=== PATIENT | female | born 1990 ===

== ENCOUNTER 2019-11-10 11:08 | Inpatient (IN) | payer MEDICAID ==
[~2019-11-10] VITALS: Ht 177.8 cm; Wt 101.6 kg
[2019-11-10 11:24] VITALS: Ht 177.8 cm; Wt 101.6 kg
[2019-11-10 11:56] LABS: BASOPHIL % 0.7 % (0-2); PLATELET COUNT 403 x10^3mcL (130-400); RED CELL DISTRIBUTION WIDTH 15.5 % (11.5-14.5)
[2019-11-10 11:58] LABS: CALCIUM 8.7 mg/dL (8.5-10.1); CARBON DIOXIDE 26.1 mmol/L (21-32); CHLORIDE SERUM 104 mmol/L (98-107); CREATININE SERUM 0.8 mg/dL (0.6-1.0); GFR1 > 60 mL/min; GLUCOSE SERUM 92 mg/dL (74-106); POTASSIUM SERUM 3.7 mmol/L (3.5-5.1); SODIUM SERUM 139 mmol/L (136-145)
[2019-11-10 12:11] LABS: ALBUMIN 3.7 g/dL (3.4-5.0); ALKALINE PHOSPHATASE 71 U/L (46-116); ALT/SGPT 22 U/L (14-59); AST/SGOT 19 U/L (15-37); BILIRUBIN TOTAL 0.2 mg/dL (0.20-1.00); MAGNESIUM 1.7 mg/dL (1.8-2.4); T4(THYROXINE) 8.7 ug/dL (4.7-13.3); TOTAL PROTEIN, SERUM 8.1 g/dL (6.4-8.2)
[2019-11-10 13:29] LABS: AMPHETAMINE QUAL UR NONE DETECTED (See below)
[2019-11-10 16:40] LABS: UA SPECIFIC GRAVITY >=1.030 (1.005-1.035); urine erythrocyte NEGATIVE (NEGATIVE)
[2019-11-10 16:41] LABS: microscopic required? YES
[2019-11-10 18:15] VITALS: BP 123/60
[2019-11-10 20:30] VITALS: BP 103/47
[2019-11-10 21:32] VITALS: BP 102/46
[2019-11-11] VITALS (7 sets, daily range): BP systolic 94–114; BP diastolic 47–71
[2019-11-11 07:31] LABS: CALCIUM 8.2 mg/dL (8.5-10.1); CARBON DIOXIDE 24.4 mmol/L (21-32); CHLORIDE SERUM 105 mmol/L (98-107); CREATININE SERUM 0.8 mg/dL (0.6-1.0); GFR1 > 60 mL/min; GLUCOSE SERUM 82 mg/dL (74-106); MAGNESIUM 1.7 mg/dL (1.8-2.4); PHOSPHOROUS 3.3 mg/dL (2.5-4.9); POTASSIUM SERUM 3.7 mmol/L (3.5-5.1); SODIUM SERUM 140 mmol/L (136-145)
[2019-11-11 08:48] LABS: BASOPHIL % 0.8 % (0-2); PLATELET COUNT 351 x10^3mcL (130-400); RED CELL DISTRIBUTION WIDTH 15.8 % (11.5-14.5)
[2019-11-12 05:15] VITALS: BP 99/48
[2019-11-12 07:01] LABS: CHLORIDE SERUM 105 mmol/L (98-107); CREATININE SERUM 0.9 mg/dL (0.6-1.0); GFR1 > 60 mL/min; GLUCOSE SERUM 83 mg/dL (74-106); MAGNESIUM 1.7 mg/dL (1.8-2.4); PHOSPHOROUS 4.2 mg/dL (2.5-4.9); POTASSIUM SERUM 3.7 mmol/L (3.5-5.1); SODIUM SERUM 138 mmol/L (136-145)
[2019-11-12 07:29] LABS: BASOPHIL % 0.9 % (0-2); PLATELET COUNT 338 x10^3mcL (130-400)
[2019-11-12 07:36] LABS: RED CELL DISTRIBUTION WIDTH 15.4 % (11.5-14.5)
[2019-11-12 08:39] VITALS: BP 107/59
== END 2019-11-12 10:13 | disposition left against medical advice (07) | DRG 53 ==
LOC: ED 11:08 → DU 15:04
PROVIDERS: Emergency Medicine; ADMIT Family Medicine; ATTEND Family Medicine
DX: G40.401 Other generalized epilepsy and epileptic syndromes, not intractable, with status epilepticus (principal); E83.42 Hypomagnesemia; D47.3 Essential (hemorrhagic) thrombocythemia; D63.8 Anemia in other chronic diseases classified elsewhere; Z53.29 Procedure and treatment not carried out because of patient's decision for other reasons; Z88.8 Allergy status to other drugs, medicaments and biological substances; Z90.49 Acquired absence of other specified parts of digestive tract; Z82.0 Family history of epilepsy and other diseases of the nervous system
CPT/HCPCS: G0378; J1953; J2060; J2405; Q0092